=== PATIENT | male | born 1985 | race African-American/Black ===

== ENCOUNTER 2019-05-30 22:19 | Emergency (ER) | payer SELFPAY ==
[~2019-05-30] VITALS: Ht 177.8 cm; Wt 124.7 kg
[2019-05-30] MEDS ORDERED: ALBUTEROL FS 2.5 MG/0.5 ML VIAL.NEB ONE (22:35)
--- NOTE | 2019-05-30 22:35 | NUR ---
RT AT BEDSIDE FOR BREATHING TREATMENT.
--- NOTE | 2019-05-30 22:41 | NUR ---
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
[2019-05-30] MEDS ORDERED: DEXAMETHASONE SOD PHOSPHATE 10 MG/ML VIAL ONE (22:42)
[2019-05-30] MEDS ORDERED: ALBUTEROL FS 2.5 MG/0.5 ML VIAL.NEB NEB ONE (23:00)
[2019-05-30] MEDS ORDERED: DEXAMETHASONE SOD PHOSPHATE 4 MG/ML VIAL IM ONE (23:00)
--- NOTE | 2019-05-30 23:14 | NUR ---
Patient discharged to home in stable condition. Written and verbal after care instructions given. Patient verbalizes understanding of instruction.
== END 2019-05-30 23:15 | disposition home or self-care (01) ==
LOC: ER 22:26
DX: J45.909 Unspecified asthma, uncomplicated (principal)
CPT/HCPCS: 71045; 94640; 96372; 99283; J1100